=== PATIENT | female | born 1960 | race Native Hawaiian/Other Pacific Islander ===

== ENCOUNTER 2022-03-24 22:43 | Inpatient (IN) | payer BC ==
[~2022-03-24] VITALS: Ht 172.7 cm; Wt 110.7 kg
[2022-03-24 22:45] VITALS: BP 128/72; TEMP 100.3
[2022-03-24 23:30] VITALS: BP 153/113
[2022-03-24 23:30] LABS: PLATELET COUNT 168 K/uL (152-353)
[2022-03-24 23:42] LABS: POTASSIUM 3.2 mmol/L (3.6-5.2)
[2022-03-25] VITALS (14 sets, daily range): BP systolic 96–130; BP diastolic 42–64; TEMP 97.4–98.4; Ht 172.7 cm; Wt 110.7 kg
[2022-03-25 08:31] LABS: PLATELET COUNT 142 K/uL (152-353)
[2022-03-25 08:42] LABS: POTASSIUM 3.3 mmol/L (3.6-5.2)
[2022-03-25] MEDS ORDERED: NP THYROID120 MG PO (10:59)
[2022-03-25] MEDS ORDERED: OLMESARTAN MEDO20 MG PO (10:59)
[2022-03-25] MEDS ORDERED: DICLOFENAC SODIUM1 % TD (11:01)
[2022-03-25] MEDS ORDERED: IBU800 MG PO (11:02)
[2022-03-25] MEDS ORDERED: FAMOTIDINE20 MG PO (11:03)
[2022-03-25] MEDS ORDERED: OMEPRAZOLE40 MG PO (11:04)
[2022-03-25] MEDS ORDERED: TRAZODONE HYDRO50 MG PO (11:05)
[2022-03-25] MEDS ORDERED: MONTELUKAST SOD10 MG PO (11:05)
[2022-03-25] MEDS ORDERED: PAROXETINE40 MG PO (11:06)
== END 2022-03-25 19:25 | disposition short-term general hospital (02) | DRG 204 ==
LOC: ED 22:43 → MED/SURG 03-25 05:15
PROVIDERS: Emergency Medicine; ADMIT Internal Medicine; ATTEND Internal Medicine
DX: R06.09 Other forms of dyspnea (principal); J18.8 Other pneumonia, unspecified organism; E87.2 Acidosis; N28.9 Disorder of kidney and ureter, unspecified; E87.6 Hypokalemia; E03.8 Other specified hypothyroidism; I10 Essential (primary) hypertension
CPT/HCPCS: 36415; 36600; 80053; 81000; 82805; 83880; 84439; 84443; 84484; 85027; 85379; 85610; 85730; 87040; 87077; 87205; 87502; 87635; 93005; 94660; 94664; 96365; 96366; 99284; J0456; J0696; J1650; J1956; J2060; J2405; J2920; J3490; U0003

== ENCOUNTER 2022-12-30 14:48 | Emergency (ER) | payer BC ==
[~2022-12-30] VITALS: Ht 172.7 cm; Wt 98.0 kg
[~2022-12-30 14:48] MED LIST: DICLOFENAC SODIUM1 % TD; FAMOTIDINE20 MG PO; IBU800 MG PO; MONTELUKAST SOD10 MG PO; NP THYROID120 MG PO; OLMESARTAN MEDO20 MG PO; OMEPRAZOLE40 MG PO; PAROXETINE40 MG PO; TRAZODONE HYDRO50 MG PO
[2022-12-30 14:50] VITALS: BP 129/76; TEMP 98.8
== END 2022-12-30 16:48 | disposition home or self-care (01) ==
LOC: ED 14:48
DX: S43.491A Other sprain of right shoulder joint, initial encounter (principal); S63.8X1A Sprain of other part of right wrist and hand, initial encounter; W01.0XXA Fall on same level from slipping, tripping and stumbling without subsequent striking against object, initial encounter; Y92.480 Sidewalk as the place of occurrence of the external cause
CPT/HCPCS: 81000; 96372; 99283; J0696

== ENCOUNTER 2023-04-06 16:22 | Outpatient (CLI) | payer BC | END 2023-04-06 18:56 | disposition home or self-care (01) | LOC: RAD 16:22 | PROVIDERS: ATTEND Physician Assistant | DX: M25.552 Pain in left hip (principal) ==